=== PATIENT | female | born 1950 | race Caucasian/White ===

== ENCOUNTER → 2018-11-05 | Outpatient (CLI) | payer MEDICARE ==
[~2018-11-05] MED LIST: ACYC-114 PO; ASCO250T3 PO; ASPI-496 PO; ATOR10TA9 PO; BALS750C14 PO; CALC-534 PO; CYCL-259 PO; HYDR25TA6 PO; IBAN150T15 PO; LOPE1TAB4 PO; LORA0.5T PO; LOSA50TA14 PO; LYSI500T PO; MELO7.5T31 PO; NORT25CA78 PO; OMEG1CAP34 PO; PENT100C2 PO; SERT25TA3 PO; VIT1CAPS44 PO; biotin PO; coq10 PO; folic acid PO
[2018-11-05 13:49] LABS: ANION GAP 8 mmol/L (5-15); CALCIUM 9.8 mg/dL (8.5-10.1); CHLORIDE 100 mmol/L (98-107)
[2018-11-05 13:53] LABS: ALANINE AMINOTRANSFERASE 21 U/L (12-78); ALKALINE PHOSPHATASE 58 U/L (45-117); BILIRUBIN,TOTAL 0.3 mg/dL (0.2-1.0); CREATININE 0.77 mg/dL (0.55-1.02); TOTAL PROTEIN 7.5 g/dL (6.4-8.2)
== END | disposition home or self-care (01) ==
LOC: STAR 12:32 → MERGE 13:00
PROVIDERS: ATTEND Otolaryngology
DX: Z01.818 Encounter for other preprocedural examination (principal); H72.93 Unspecified perforation of tympanic membrane, bilateral; I51.7 Cardiomegaly
CPT/HCPCS: 36415; 80053; 93005

== ENCOUNTER 2018-11-12 05:39 | Day surgery (SDC) | payer MEDICARE ==
[2018-11-05 15:37] VITALS: BP 143/93
[~2018-11-12] VITALS: Ht 165.1 cm; Wt 57.0 kg
[2018-11-12] MEDS ORDERED: LACTATED RINGERS 1,000 ML IV SCH (06:34)
[2018-11-12] MEDS ORDERED: CIPROFLOXACIN DEXAMETHASONE EAR SUSP 7.5ML ONE (06:44)
[2018-11-12] MEDS ORDERED: EPINEPHRINE TOPICAL SOLN 1 MG/ML, 30ML ONE (06:44)
[2018-11-12] MEDS ORDERED: LIDOCAINE 1%, 20ML ONE (06:45)
[2018-11-12] MEDS ORDERED: EPINEPHRINE 1 MG/ML, 1ML ONE (06:45)
[2018-11-12] MEDS ORDERED: FENTANYL PF 100 MCG/2ML ONE (07:04)
[2018-11-12] MEDS ORDERED: MIDAZOLAM 1 MG/ML, 2ML ONE (07:04)
[2018-11-12] MEDS ORDERED: DEXAMETHASONE 4 MG/ML, 1ML ONE (07:21)
[2018-11-12] MEDS ORDERED: EPHEDRINE 50 MG/ML, 1ML ONE (07:21)
[2018-11-12] MEDS ORDERED: PHENYLEPHRINE 10 MG/ML ONE (07:21)
[2018-11-12] MEDS ORDERED: SUCCINYLCHOLINE 20 MG/ML, 10ML ONE (07:21)
[2018-11-12] MEDS ORDERED: PROPOFOL 10 MG/ML, 20ML ONE (07:21)
[2018-11-12] MEDS ORDERED: CEFAZOLIN 1,000 MG ONE (07:21)
[2018-11-12] MEDS ORDERED: ONDANSETRON 2MG/ML, 2ML ONE (07:21)
[2018-11-12] MEDS ORDERED: ROCURONIUM 10 MG/ML,10ML ONE (07:21)
[2018-11-12] MEDS ORDERED: NEO/POLY/HC EAR SUSP 10ML ONE (07:45)
== END 2018-11-12 10:05 | disposition home or self-care (01) ==
LOC: OUT 05:39
PROVIDERS: ATTEND Otolaryngology
DX: H72.91 Unspecified perforation of tympanic membrane, right ear (principal); Z88.6 Allergy status to analgesic agent; Z88.8 Allergy status to other drugs, medicaments and biological substances
CPT/HCPCS: 69631; J0171; J0330; J0690; J1100; J2250; J2370; J2405; J2704; J3010; J7120